=== PATIENT | male | born 1960 | race Two or more races ===

== ENCOUNTER 2016-11-23 10:58 | Outpatient (CLI) | payer MEDICARE, OTHER ==
[2016-11-23] MEDS ORDERED: INSU100V11 SQ (14:41)
[2016-11-23] MEDS ORDERED: INSU100V7 SQ (14:41)
[2016-11-23] MEDS ORDERED: ATOR10TA PO (14:41)
[2016-11-23] MEDS ORDERED: FENO160T PO (14:41)
[2016-11-23] MEDS ORDERED: SITA50TA PO (14:41)
[2016-11-23] MEDS ORDERED: FOLI0.8T23 PO (14:41)
[2016-11-23] MEDS ORDERED: LISI2.5T2 PO (14:41)
== END 2016-11-23 23:59 | disposition home or self-care (01) ==
LOC: WOU 10:58
PROVIDERS: ATTEND Podiatrist Foot & Ankle Surgery
DX: L03.115 Cellulitis of right lower limb (principal); Z89.511 Acquired absence of right leg below knee; R60.0 Localized edema; R50.9 Fever, unspecified; Z87.891 Personal history of nicotine dependence; E11.65 Type 2 diabetes mellitus with hyperglycemia; E11.40 Type 2 diabetes mellitus with diabetic neuropathy, unspecified; Z79.4 Long term (current) use of insulin; Z79.84 Long term (current) use of oral hypoglycemic drugs; E78.00 Pure hypercholesterolemia, unspecified
CPT/HCPCS: G0463

== ENCOUNTER 2016-11-23 12:44 | Inpatient (IN) | payer MEDICARE, OTHER ==
[~2016-11-23] VITALS: Ht 177.8 cm; Wt 87.1 kg
[2016-11-23 13:00] VITALS: BP 146/75
[2016-11-23] MEDS ORDERED: VANCOMYCIN 1 GM in IV D5W 250 ML IV ONE (14:00)
[2016-11-23] MEDS ORDERED: PIPERACILLIN /TAZOBACTAM 3.375 G in IV D5W 50 ML IV ONE (14:00)
[2016-11-23] MEDS ORDERED: DEXTROSE 50%-WATER 50 ML DISP.SYRIN IV PRN (14:00)
[2016-11-23 14:14] LABS: BASOPHILS # (AUTO) 0.1 /CMM (0.0-0.2); DIFF TOTAL % 100 %; EOSINOPHILS # (AUTO) 0.3 /CMM (0.0-0.7); EOSINOPHILS % (AUTO) 2.5 % (0.0-6.0); HEMATOCRIT 37 % (39-51); HEMOGLOBIN 12.1 g/dL (13.5-17.5); LYMPHOCYTES # (AUTO) 1.8 /CMM (0.8-4.8); MEAN CORPUSCULAR HEMOGLOBIN 28 PG (26.0-33.0); MEAN CORPUSCULAR HGB CONC 33 g/dl (31.0-36.0); MEAN CORPUSCULAR VOLUME 84 fL (80-96); MONOCYTES # (AUTO) 1.3 /CMM (0.1-1.30); MONOCYTES % (AUTO) 9.5 % (2.0-12.0); NEUTROPHILS # (AUTO) 10.2 /CMM (1.8-8.9); PLATELET COUNT (AUTO) 302 /CMM (150-450); RED BLOOD CELL COUNT(AUTO) 4.35 MIL/uL (4.5-6.0); WHITE BLOOD COUNT (AUTO) 13.7 K/uL (4.3-11.0)
[2016-11-23 14:24] LABS: CALCIUM, SERUM 9.2 mg/dL (8.5-10.1); CREATININE 2.7 mg/dL (0.6-1.3); POTASSIUM 4.4 mmol/L (3.5-5.1)
[2016-11-23] MEDS ORDERED: ATOR10TA PO (14:41)
[2016-11-23] MEDS ORDERED: SITA50TA PO (14:41)
[2016-11-23] MEDS ORDERED: FENO160T PO (14:41)
[2016-11-23] MEDS ORDERED: FOLI0.8T23 PO (14:41)
[2016-11-23] MEDS ORDERED: INSU100V11 SQ (14:41)
[2016-11-23] MEDS ORDERED: LISI2.5T2 PO (14:41)
[2016-11-23] MEDS ORDERED: INSU100V7 SQ (14:41)
[2016-11-23] MEDS ORDERED: SECONDARY IV SET 1 EA INFUS.SET MC ONE ×2 (14:56→15:46)
[2016-11-23] MEDS ORDERED: IV NS 0.9% 250 ML IV ONE (14:56)
[2016-11-23] MEDS ORDERED: IV SET PRIMARY PUMP SET 1 EA INFUS.SET MC ONE (14:56)
[2016-11-23] MEDS ORDERED: IV NS 0.9% 500 ML IV ONE (15:00)
[2016-11-23 16:00] VITALS: BP_SYST 145; BP_SYST 79; BP_DIAS 79
[2016-11-23 16:06] LABS: ERYTHROCYTE SEDIMENTATION RATE 69 MM/HR (0-20)
[2016-11-23] MEDS: BLOOD SUGAR DIAGNOSTIC 1 EACH STRIP VI SCH ×2 (17:14→21:59)
[2016-11-23] MEDS: INSULIN REGULAR, HUMAN 100 UNIT/ML 3 ML VIAL SQ PRN (17:18)
[2016-11-23] MEDS: HYDROCODONE/APAP 5/325MG 1 EACH TABLET PO PRN ×2 (17:21→21:31)
[2016-11-23] MEDS ORDERED: BLOOD SUGAR DIAGNOSTIC 1 EACH STRIP IN SCH (17:30)
[2016-11-23] MEDS ORDERED: FEE PK DOSING 1 MIN EA MC ONE (17:35)
[2016-11-23 20:00] VITALS: BP 150/87
[2016-11-23] MEDS ORDERED: INSULIN DETEMIR 100 UNIT/ML CARTRIDGE SQ SCH (22:00)
[2016-11-23] MEDS: *INSULIN REGULAR(HUMULIN R)HUM 100 UNIT/ML VIAL SQ PRN (22:02)
[2016-11-23] MEDS: PIPERACILLIN /TAZOBACTAM 2.25 G in IV D5W 50 ML IV SCH (23:35)
[2016-11-24] MEDS: PIPERACILLIN /TAZOBACTAM 2.25 G in IV D5W 50 ML IV SCH ×3 (05:01→17:16)
[2016-11-24] MEDS: HYDROCODONE/APAP 5/325MG 1 EACH TABLET PO PRN ×4 (05:09→22:44)
[2016-11-24] MEDS: BLOOD SUGAR DIAGNOSTIC 1 EACH STRIP VI SCH ×4 (05:53→21:15)
[2016-11-24] MEDS: *INSULIN REGULAR(HUMULIN R)HUM 100 UNIT/ML VIAL SQ PRN ×2 (06:41→21:18)
[2016-11-24 08:00] VITALS: BP 158/91
[2016-11-24] MEDS ORDERED: INSULIN GLARGINE, 100 UNIT/ML CARTRIDGE SQ SCH (09:00)
[2016-11-24] MEDS: FENOFIBRATE NANOCRYS (145 MG) 145 MG TABLET PO SCH (09:04)
[2016-11-24] MEDS: VIT B CMPLX 3/FA/VIT C/BIOTIN 1 TAB TABLET PO SCH (09:05)
[2016-11-24] MEDS: SITAGLIPTIN PHOSPHATE 50 MG TABLET PO SCH (09:05)
[2016-11-24] MEDS: ATORVASTATIN 10 MG TABLET PO SCH (09:05)
[2016-11-24] MEDS: LISINOPRIL (5MG) 5 MG TABLET PO SCH (09:08)
[2016-11-24] MEDS: INSULIN DETEMIR 100 UNIT/ML CARTRIDGE SQ SCH (09:13)
[2016-11-24] MEDS: INSULIN REGULAR, HUMAN 100 UNIT/ML 3 ML VIAL SQ PRN ×2 (11:33→16:40)
[2016-11-24 14:52] LABS: CALCIUM, SERUM 9.2 mg/dL (8.5-10.1); CREATININE 2.6 mg/dL (0.6-1.3)
[2016-11-24] MEDS: VANCOMYCIN 1 GM in IV D5W 250 ML IV SCH (15:44)
[2016-11-24 16:00] VITALS: BP 152/82
[2016-11-24 16:20] VITALS: BP 152/82
[2016-11-24] MEDS: LACTOBACILLUS RHAMNOSUS GG 1 EACH CAP.SPRINK PO SCH (16:39)
[2016-11-24 20:00] VITALS: BP 158/89
[2016-11-25] MEDS: PIPERACILLIN /TAZOBACTAM 2.25 G in IV D5W 50 ML IV SCH ×3 (00:50→11:44)
[2016-11-25] MEDS: INSULIN REGULAR, HUMAN 100 UNIT/ML 3 ML VIAL SQ PRN ×4 (05:34→21:50)
[2016-11-25] MEDS: BLOOD SUGAR DIAGNOSTIC 1 EACH STRIP VI SCH ×4 (05:35→21:41)
[2016-11-25 07:16] LABS: BASOPHILS # (AUTO) 0.1 /CMM (0.0-0.2); DIFF TOTAL % 100 %; EOSINOPHILS # (AUTO) 0.5 /CMM (0.0-0.7); EOSINOPHILS % (AUTO) 4.8 % (0.0-6.0); HEMATOCRIT 38 % (39-51); HEMOGLOBIN 12.3 g/dL (13.5-17.5); LYMPHOCYTES # (AUTO) 1.5 /CMM (0.8-4.8); LYMPHOCYTES % (AUTO) 15.4 % (20.0-44.0); MEAN CORPUSCULAR HEMOGLOBIN 28 PG (26.0-33.0); MEAN CORPUSCULAR HGB CONC 33 g/dl (31.0-36.0); MEAN CORPUSCULAR VOLUME 84 fL (80-96); MONOCYTES # (AUTO) 0.9 /CMM (0.1-1.30); MONOCYTES % (AUTO) 9.2 % (2.0-12.0); NEUTROPHILS % (AUTO) 69.6 % (43.0-81.0); PLATELET COUNT (AUTO) 322 /CMM (150-450); RED BLOOD CELL COUNT(AUTO) 4.45 MIL/uL (4.5-6.0)
[2016-11-25 07:41] LABS: CALCIUM, SERUM 9.4 mg/dL (8.5-10.1); CREATININE 2.3 mg/dL (0.6-1.3); POTASSIUM 4.1 mmol/L (3.5-5.1)
[2016-11-25 08:00] VITALS: BP_SYST 107; BP_SYST 157; BP_DIAS 73; BP_DIAS 87
[2016-11-25] MEDS: VIT B CMPLX 3/FA/VIT C/BIOTIN 1 TAB TABLET PO SCH (08:37)
[2016-11-25] MEDS: SITAGLIPTIN PHOSPHATE 50 MG TABLET PO SCH (08:37)
[2016-11-25] MEDS: ATORVASTATIN 10 MG TABLET PO SCH (08:37)
[2016-11-25] MEDS: FENOFIBRATE NANOCRYS (145 MG) 145 MG TABLET PO SCH (08:37)
[2016-11-25] MEDS: LACTOBACILLUS RHAMNOSUS GG 1 EACH CAP.SPRINK PO SCH ×2 (08:37→16:56)
[2016-11-25] MEDS: LISINOPRIL (5MG) 5 MG TABLET PO SCH (08:38)
[2016-11-25] MEDS: INSULIN DETEMIR 100 UNIT/ML CARTRIDGE SQ SCH (08:46)
[2016-11-25] MEDS: HYDROCODONE/APAP 5/325MG 1 EACH TABLET PO PRN ×2 (09:51→16:56)
[2016-11-25] MEDS ORDERED: IV NS 0.9% 500 ML IV ONE (11:00)
[2016-11-25 12:00] VITALS: BP 98/56
[2016-11-25 16:00] VITALS: BP_SYST 100; BP_SYST 148; BP_DIAS 62; BP_DIAS 85
[2016-11-25] MEDS: VANCOMYCIN 1 GM in IV D5W 250 ML IV SCH (16:53)
[2016-11-25] MEDS: CEFTRIAXONE 1 G in IV D5W 50 ML IV SCH (19:09)
[2016-11-25 20:00] VITALS: BP 142/79
[2016-11-26] MEDS: BLOOD SUGAR DIAGNOSTIC 1 EACH STRIP VI SCH ×4 (07:30→22:45)
[2016-11-26 08:00] VITALS: BP 159/66
[2016-11-26] MEDS: ATORVASTATIN 10 MG TABLET PO SCH (08:16)
[2016-11-26] MEDS: FENOFIBRATE NANOCRYS (145 MG) 145 MG TABLET PO SCH (08:16)
[2016-11-26] MEDS: LACTOBACILLUS RHAMNOSUS GG 1 EACH CAP.SPRINK PO SCH ×2 (08:17→16:15)
[2016-11-26] MEDS: SITAGLIPTIN PHOSPHATE 50 MG TABLET PO SCH (08:17)
[2016-11-26] MEDS: VIT B CMPLX 3/FA/VIT C/BIOTIN 1 TAB TABLET PO SCH (08:17)
[2016-11-26] MEDS: LISINOPRIL (5MG) 5 MG TABLET PO SCH (08:19)
[2016-11-26] MEDS: HYDROCODONE/APAP 5/325MG 1 EACH TABLET PO PRN ×3 (08:20→21:09)
[2016-11-26] MEDS: INSULIN DETEMIR 100 UNIT/ML CARTRIDGE SQ SCH (08:27)
[2016-11-26] MEDS: INSULIN REGULAR, HUMAN 100 UNIT/ML 3 ML VIAL SQ PRN (12:23)
[2016-11-26] MEDS ORDERED: IV NS 0.9% 250 ML IV ONE (15:10)
[2016-11-26] MEDS ORDERED: SET RED CAP 1 EA INFUS.SET MC ONE (15:10)
[2016-11-26] MEDS ORDERED: IV SET PRIMARY PUMP SET 1 EA INFUS.SET MC ONE (15:10)
[2016-11-26] MEDS ORDERED: SECONDARY IV SET 1 EA INFUS.SET MC ONE ×2 (15:10→17:21)
[2016-11-26 15:36] LABS: BASOPHILS # (AUTO) 0.1 /CMM (0.0-0.2); BASOPHILS % (AUTO) 1.4 % (0.0-2.0); DIFF TOTAL % 100 %; EOSINOPHILS # (AUTO) 0.5 /CMM (0.0-0.7); EOSINOPHILS % (AUTO) 5.2 % (0.0-6.0); HEMATOCRIT 37 % (39-51); HEMOGLOBIN 12.1 g/dL (13.5-17.5); LYMPHOCYTES # (AUTO) 1.3 /CMM (0.8-4.8); LYMPHOCYTES % (AUTO) 15.3 % (20.0-44.0); MEAN CORPUSCULAR HEMOGLOBIN 28 PG (26.0-33.0); MEAN CORPUSCULAR HGB CONC 33 g/dl (31.0-36.0); MEAN CORPUSCULAR VOLUME 85 fL (80-96); MONOCYTES # (AUTO) 0.7 /CMM (0.1-1.30); MONOCYTES % (AUTO) 7.8 % (2.0-12.0); NEUTROPHILS # (AUTO) 6.2 /CMM (1.8-8.9); NEUTROPHILS % (AUTO) 70.3 % (43.0-81.0); PLATELET COUNT (AUTO) 323 /CMM (150-450); RED BLOOD CELL COUNT(AUTO) 4.36 MIL/uL (4.5-6.0); WHITE BLOOD COUNT (AUTO) 8.8 K/uL (4.3-11.0)
[2016-11-26 15:46] LABS: CALCIUM, SERUM 8.7 mg/dL (8.5-10.1); CREATININE 2.5 mg/dL (0.6-1.3); POTASSIUM 4.4 mmol/L (3.5-5.1)
[2016-11-26 16:00] VITALS: BP 158/96
[2016-11-26] MEDS: VANCOMYCIN 1 GM in IV D5W 250 ML IV SCH (16:11)
[2016-11-26] MEDS: INSULIN ASPART NOVOLOG 100 UNIT/ML CARTRIDGE SQ SCH (16:24)
[2016-11-26] MEDS: *INSULIN REGULAR(HUMULIN R)HUM 100 UNIT/ML VIAL SQ PRN ×2 (17:52→22:19)
[2016-11-26] MEDS: CEFTRIAXONE 1 G in IV D5W 50 ML IV SCH (18:45)
[2016-11-26 20:00] VITALS: BP 134/97
[2016-11-27] MEDS: BLOOD SUGAR DIAGNOSTIC 1 EACH STRIP VI SCH ×4 (06:42→21:52)
[2016-11-27 07:35] LABS: BASOPHILS # (AUTO) 0.1 /CMM (0.0-0.2); DIFF TOTAL % 100 %; EOSINOPHILS # (AUTO) 0.4 /CMM (0.0-0.7); EOSINOPHILS % (AUTO) 5.1 % (0.0-6.0); HEMATOCRIT 38 % (39-51); HEMOGLOBIN 12.6 g/dL (13.5-17.5); LYMPHOCYTES # (AUTO) 1.9 /CMM (0.8-4.8); LYMPHOCYTES % (AUTO) 22.2 % (20.0-44.0); MEAN CORPUSCULAR HEMOGLOBIN 28 PG (26.0-33.0); MEAN CORPUSCULAR HGB CONC 33 g/dl (31.0-36.0); MEAN CORPUSCULAR VOLUME 85 fL (80-96); MONOCYTES # (AUTO) 0.8 /CMM (0.1-1.30); MONOCYTES % (AUTO) 8.8 % (2.0-12.0); NEUTROPHILS # (AUTO) 5.5 /CMM (1.8-8.9); NEUTROPHILS % (AUTO) 62.9 % (43.0-81.0); PLATELET COUNT (AUTO) 350 /CMM (150-450); RED BLOOD CELL COUNT(AUTO) 4.54 MIL/uL (4.5-6.0); WHITE BLOOD COUNT (AUTO) 8.7 K/uL (4.3-11.0)
[2016-11-27 07:46] LABS: CALCIUM, SERUM 9.3 mg/dL (8.5-10.1); CREATININE 2.2 mg/dL (0.6-1.3); POTASSIUM 4.3 mmol/L (3.5-5.1)
[2016-11-27] MEDS: HYDROCODONE/APAP 5/325MG 1 EACH TABLET PO PRN ×3 (07:50→17:34)
[2016-11-27 07:54] VITALS: BP 126/77
[2016-11-27] MEDS: INSULIN ASPART NOVOLOG 100 UNIT/ML CARTRIDGE SQ SCH ×3 (07:54→17:31)
[2016-11-27] MEDS ORDERED: INSULIN ASPART NOVOLOG 100 UNIT/ML CARTRIDGE SQ SCH (08:00)
[2016-11-27] MEDS: FENOFIBRATE NANOCRYS (145 MG) 145 MG TABLET PO SCH (08:03)
[2016-11-27] MEDS: LACTOBACILLUS RHAMNOSUS GG 1 EACH CAP.SPRINK PO SCH ×2 (08:03→17:05)
[2016-11-27] MEDS: VIT B CMPLX 3/FA/VIT C/BIOTIN 1 TAB TABLET PO SCH (08:03)
[2016-11-27] MEDS: SITAGLIPTIN PHOSPHATE 50 MG TABLET PO SCH (08:03)
[2016-11-27] MEDS: ATORVASTATIN 10 MG TABLET PO SCH (08:04)
[2016-11-27] MEDS: LISINOPRIL (5MG) 5 MG TABLET PO SCH (08:06)
[2016-11-27] MEDS: VANCOMYCIN 1 GM in IV D5W 250 ML IV SCH (15:20)
[2016-11-27 16:15] VITALS: BP 133/70
[2016-11-27] MEDS: CEFTRIAXONE 1 G in IV D5W 50 ML IV SCH (18:35)
[2016-11-27 19:00] VITALS: BP 122/73
[2016-11-27] MEDS: *INSULIN REGULAR(HUMULIN R)HUM 100 UNIT/ML VIAL SQ PRN (21:53)
[2016-11-28] MEDS: BLOOD SUGAR DIAGNOSTIC 1 EACH STRIP VI SCH ×4 (07:34→22:07)
[2016-11-28] MEDS: INSULIN ASPART NOVOLOG 100 UNIT/ML CARTRIDGE SQ SCH ×3 (07:36→17:50)
[2016-11-28] MEDS: INSULIN REGULAR, HUMAN 100 UNIT/ML 3 ML VIAL SQ PRN ×3 (07:36→17:51)
[2016-11-28 07:48] LABS: CALCIUM, SERUM 9.1 mg/dL (8.5-10.1); CREATININE 2.4 mg/dL (0.6-1.3); POTASSIUM 4.5 mmol/L (3.5-5.1)
[2016-11-28 08:00] VITALS: BP_SYST 130; BP_SYST 131; BP_DIAS 73
[2016-11-28] MEDS: INSULIN DETEMIR 100 UNIT/ML CARTRIDGE SQ SCH (09:22)
[2016-11-28] MEDS: FENOFIBRATE NANOCRYS (145 MG) 145 MG TABLET PO SCH (09:23)
[2016-11-28] MEDS: LACTOBACILLUS RHAMNOSUS GG 1 EACH CAP.SPRINK PO SCH ×2 (09:23→17:40)
[2016-11-28] MEDS: ATORVASTATIN 10 MG TABLET PO SCH (09:23)
[2016-11-28] MEDS: VIT B CMPLX 3/FA/VIT C/BIOTIN 1 TAB TABLET PO SCH (09:23)
[2016-11-28] MEDS: LISINOPRIL (5MG) 5 MG TABLET PO SCH (09:24)
[2016-11-28] MEDS: SITAGLIPTIN PHOSPHATE 50 MG TABLET PO SCH (09:24)
[2016-11-28] MEDS: HYDROCODONE/APAP 5/325MG 1 EACH TABLET PO PRN ×2 (10:05→20:18)
[2016-11-28 15:56] VITALS: BP 136/74
[2016-11-28 16:00] VITALS: BP 136/74
[2016-11-28] MEDS: VANCOMYCIN 1 GM in IV D5W 250 ML IV SCH (16:26)
[2016-11-28] MEDS ORDERED: LIDOCAINE 1%-EPI 1:100,000 20 ML VIAL TP ONE (17:30)
[2016-11-28] MEDS: CEFTRIAXONE 1 G in IV D5W 50 ML IV SCH (17:40)
[2016-11-28 18:00] VITALS: BP 136/74
[2016-11-28 20:00] VITALS: BP 134/62
[2016-11-28] MEDS: *INSULIN REGULAR(HUMULIN R)HUM 100 UNIT/ML VIAL SQ PRN (22:12)
[2016-11-29] MEDS: HYDROCODONE/APAP 5/325MG 1 EACH TABLET PO PRN ×2 (01:18→09:01)
[2016-11-29] MEDS: INSULIN REGULAR, HUMAN 100 UNIT/ML 3 ML VIAL SQ PRN ×2 (06:28→12:14)
[2016-11-29] MEDS: INSULIN ASPART NOVOLOG 100 UNIT/ML CARTRIDGE SQ SCH ×2 (07:04→12:13)
[2016-11-29 07:21] LABS: CREATININE 2.4 mg/dL (0.6-1.3); POTASSIUM 4.6 mmol/L (3.5-5.1)
[2016-11-29] MEDS: BLOOD SUGAR DIAGNOSTIC 1 EACH STRIP VI SCH ×2 (07:47→12:09)
[2016-11-29 08:00] VITALS: BP 126/73
[2016-11-29] MEDS: LACTOBACILLUS RHAMNOSUS GG 1 EACH CAP.SPRINK PO SCH (08:58)
[2016-11-29] MEDS: SITAGLIPTIN PHOSPHATE 50 MG TABLET PO SCH (08:58)
[2016-11-29] MEDS: ATORVASTATIN 10 MG TABLET PO SCH (08:58)
[2016-11-29 08:59] VITALS: BP 126/73
[2016-11-29] MEDS: VIT B CMPLX 3/FA/VIT C/BIOTIN 1 TAB TABLET PO SCH (08:59)
[2016-11-29] MEDS: FENOFIBRATE NANOCRYS (145 MG) 145 MG TABLET PO SCH (08:59)
[2016-11-29] MEDS: LISINOPRIL (5MG) 5 MG TABLET PO SCH (08:59)
[2016-11-29] MEDS: INSULIN DETEMIR 100 UNIT/ML CARTRIDGE SQ SCH (09:14)
[2016-11-29] MEDS ORDERED: DAKINS QUARTER STRENGTH (0.125%) 480 ML BOTTLE TOP SCH (13:30)
== END 2016-11-29 14:15 | disposition home health service (06) | DRG 602 ==
LOC: WOUND3 12:44 → MED 11-24 21:42 → WOUND3 11-27 09:59
PROVIDERS: ADMIT Podiatrist Foot & Ankle Surgery; ATTEND Family Medicine
PROC: 0Y9H0ZZ Drainage of Right Lower Leg, Open Approach (ICD-10-PCS; principal; 2016-11-28)
DX: L03.115 Cellulitis of right lower limb (principal); N17.0 Acute kidney failure with tubular necrosis; L02.415 Cutaneous abscess of right lower limb; I12.9 Hypertensive chronic kidney disease with stage 1 through stage 4 chronic kidney disease, or unspecified chronic kidney disease; E11.22 Type 2 diabetes mellitus with diabetic chronic kidney disease; E11.40 Type 2 diabetes mellitus with diabetic neuropathy, unspecified; N18.9 Chronic kidney disease, unspecified; D63.8 Anemia in other chronic diseases classified elsewhere; E11.42 Type 2 diabetes mellitus with diabetic polyneuropathy; E66.9 Obesity, unspecified; E78.5 Hyperlipidemia, unspecified; Z83.3 Family history of diabetes mellitus; Z87.891 Personal history of nicotine dependence; Z89.511 Acquired absence of right leg below knee; D72.829 Elevated white blood cell count, unspecified; Z68.27 Body mass index [BMI] 27.0-27.9, adult; E11.65 Type 2 diabetes mellitus with hyperglycemia; E83.9 Disorder of mineral metabolism, unspecified
CPT/HCPCS: 36415; 71010-TC; 73560-TC; 73721-TC; 80048-TC; 80202-TC; 82962-TC; 83735-TC; 84100-TC; 85025-TC; 85652-TC; 87070-TC; 87081-TC; 94799-TC; A6402; A6403; J0696; J1815; J2543; J3370; J3490; J7040; J7050; J7060

== ENCOUNTER 2016-12-10 13:00 | Outpatient (CLI) | payer MEDICARE, OTHER ==
[~2016-12-10 13:00] MED LIST: ATOR10TA PO; FENO160T PO; FOLI0.8T23 PO; INSU100V11 SQ; INSU100V7 SQ; LISI2.5T2 PO; SITA50TA PO
== END 2016-12-10 23:59 | disposition home health service (06) ==
LOC: WOU 13:00
PROVIDERS: ATTEND Surgery
DX: T87.43 Infection of amputation stump, right lower extremity (principal); L03.115 Cellulitis of right lower limb; E78.00 Pure hypercholesterolemia, unspecified; Z68.30 Body mass index [BMI] 30.0-30.9, adult; E66.9 Obesity, unspecified; Z89.511 Acquired absence of right leg below knee; Z87.891 Personal history of nicotine dependence; E11.40 Type 2 diabetes mellitus with diabetic neuropathy, unspecified; Z79.4 Long term (current) use of insulin; Z79.899 Other long term (current) drug therapy
CPT/HCPCS: 11043; A6402

== ENCOUNTER 2016-12-17 12:31 | Outpatient (CLI) | payer MEDICARE, OTHER | END 2016-12-17 23:59 | disposition home or self-care (01) | LOC: WOU 12:31 | PROVIDERS: ATTEND Surgery | DX: T87.43 Infection of amputation stump, right lower extremity (principal); L03.115 Cellulitis of right lower limb; E78.00 Pure hypercholesterolemia, unspecified; Z68.30 Body mass index [BMI] 30.0-30.9, adult; E66.9 Obesity, unspecified; Z89.511 Acquired absence of right leg below knee; Z87.891 Personal history of nicotine dependence; E11.40 Type 2 diabetes mellitus with diabetic neuropathy, unspecified; Z79.4 Long term (current) use of insulin; Z79.899 Other long term (current) drug therapy | CPT/HCPCS: 11043; A6402 ==

== ENCOUNTER 2016-12-31 13:15 | Outpatient (CLI) | payer MEDICARE, OTHER | END 2016-12-31 23:59 | disposition home health service (06) | LOC: WOU 13:15 | PROVIDERS: ATTEND Surgery | DX: Z48.817 Encounter for surgical aftercare following surgery on the skin and subcutaneous tissue (principal); L03.115 Cellulitis of right lower limb; R60.0 Localized edema; Z89.511 Acquired absence of right leg below knee; E11.21 Type 2 diabetes mellitus with diabetic nephropathy; E11.40 Type 2 diabetes mellitus with diabetic neuropathy, unspecified; Z89.412 Acquired absence of left great toe; Z87.891 Personal history of nicotine dependence; E78.00 Pure hypercholesterolemia, unspecified; Z68.30 Body mass index [BMI] 30.0-30.9, adult; E66.9 Obesity, unspecified; Z79.4 Long term (current) use of insulin; Z79.84 Long term (current) use of oral hypoglycemic drugs; Z79.899 Other long term (current) drug therapy | CPT/HCPCS: 11042; A6402 ==

== ENCOUNTER 2017-02-25 13:30 | Outpatient (CLI) | payer MEDICARE, OTHER | END 2017-02-25 23:59 | disposition home or self-care (01) | LOC: WOU 13:30 | PROVIDERS: ATTEND Surgery | DX: L89.892 Pressure ulcer of other site, stage 2 (principal); Z89.511 Acquired absence of right leg below knee; E11.22 Type 2 diabetes mellitus with diabetic chronic kidney disease; I12.9 Hypertensive chronic kidney disease with stage 1 through stage 4 chronic kidney disease, or unspecified chronic kidney disease; N18.9 Chronic kidney disease, unspecified; Z87.891 Personal history of nicotine dependence; T87.89 Other complications of amputation stump; Z68.30 Body mass index [BMI] 30.0-30.9, adult; E78.00 Pure hypercholesterolemia, unspecified; E11.9 Type 2 diabetes mellitus without complications; Z79.4 Long term (current) use of insulin; Z79.899 Other long term (current) drug therapy | CPT/HCPCS: 11042; A6402 ==

== ENCOUNTER 2018-01-27 13:41 | Outpatient (CLI) | payer MEDICARE, OTHER | END 2018-01-27 23:59 | disposition home or self-care (01) | LOC: WOU 13:41 | PROVIDERS: ATTEND Surgery | DX: L89.893 Pressure ulcer of other site, stage 3 (principal); T87.89 Other complications of amputation stump; Z89.511 Acquired absence of right leg below knee; Z89.412 Acquired absence of left great toe; Z87.891 Personal history of nicotine dependence; E11.40 Type 2 diabetes mellitus with diabetic neuropathy, unspecified; E78.00 Pure hypercholesterolemia, unspecified; Z68.29 Body mass index [BMI] 29.0-29.9, adult | CPT/HCPCS: 11042; A6209; A6402 ==

== ENCOUNTER 2023-02-08 08:19 | Outpatient (CLI) | payer MEDICARE, OTHER | END 2023-02-08 23:59 | disposition home or self-care (01) | LOC: WOU 08:19 | PROVIDERS: ATTEND Podiatrist Foot & Ankle Surgery | DX: E11.621 Type 2 diabetes mellitus with foot ulcer (principal); L97.522 Non-pressure chronic ulcer of other part of left foot with fat layer exposed; E11.42 Type 2 diabetes mellitus with diabetic polyneuropathy; Z89.511 Acquired absence of right leg below knee; L84 Corns and callosities | CPT/HCPCS: 87070; 87075; G0463; A6197 ==

== ENCOUNTER 2023-02-15 08:20 | Outpatient (CLI) | payer MEDICARE, OTHER | END 2023-02-15 23:59 | disposition home or self-care (01) | LOC: WOU 08:20 | PROVIDERS: ATTEND Podiatrist Foot & Ankle Surgery | DX: E11.621 Type 2 diabetes mellitus with foot ulcer (principal); L97.522 Non-pressure chronic ulcer of other part of left foot with fat layer exposed; E11.42 Type 2 diabetes mellitus with diabetic polyneuropathy; Z89.511 Acquired absence of right leg below knee | CPT/HCPCS: 11042; A6197 ==

== ENCOUNTER 2023-02-22 10:22 | Outpatient (CLI) | payer MEDICARE, OTHER | END 2023-02-22 23:59 | disposition home or self-care (01) | LOC: WOU 10:22 | PROVIDERS: ATTEND Podiatrist Foot & Ankle Surgery | DX: E11.621 Type 2 diabetes mellitus with foot ulcer (principal); L97.528 Non-pressure chronic ulcer of other part of left foot with other specified severity; E11.42 Type 2 diabetes mellitus with diabetic polyneuropathy; Z89.511 Acquired absence of right leg below knee | CPT/HCPCS: 11042 ==

== ENCOUNTER 2023-05-14 10:30 | Outpatient (CLI) | payer MEDICARE, OTHER | END 2023-05-14 23:59 | disposition home or self-care (01) | LOC: WOU 10:30 | PROVIDERS: ATTEND Podiatrist Foot & Ankle Surgery | DX: E11.621 Type 2 diabetes mellitus with foot ulcer (principal); L97.522 Non-pressure chronic ulcer of other part of left foot with fat layer exposed; E11.42 Type 2 diabetes mellitus with diabetic polyneuropathy; Z89.511 Acquired absence of right leg below knee; Z79.84 Long term (current) use of oral hypoglycemic drugs; Z79.02 Long term (current) use of antithrombotics/antiplatelets; Z79.899 Other long term (current) drug therapy; E78.00 Pure hypercholesterolemia, unspecified | CPT/HCPCS: 15275; Q4133 ==

== ENCOUNTER 2025-06-29 09:49 | Outpatient (CLI) | payer MEDICARE, OTHER | END 2025-06-29 23:59 | disposition home health service (06) | LOC: WOU 09:49 | PROVIDERS: ATTEND Podiatrist Foot & Ankle Surgery | DX: E11.621 Type 2 diabetes mellitus with foot ulcer (principal); L97.525 Non-pressure chronic ulcer of other part of left foot with muscle involvement without evidence of necrosis; E11.42 Type 2 diabetes mellitus with diabetic polyneuropathy; E11.69 Type 2 diabetes mellitus with other specified complication; M86.672 Other chronic osteomyelitis, left ankle and foot; Z89.422 Acquired absence of other left toe(s); Z79.4 Long term (current) use of insulin; Z79.02 Long term (current) use of antithrombotics/antiplatelets | CPT/HCPCS: 11043 ==

== ENCOUNTER 2025-08-24 10:18 | Outpatient (CLI) | payer MEDICARE, OTHER ==
[2025-08-24] MEDS ORDERED: COLLAGENASE 5 GM TUBE UD TP ONE (10:48)
== END 2025-08-24 23:59 | disposition home health service (06) ==
LOC: WOU 10:18
PROVIDERS: ATTEND Podiatrist Foot & Ankle Surgery
DX: E11.621 Type 2 diabetes mellitus with foot ulcer (principal); L97.525 Non-pressure chronic ulcer of other part of left foot with muscle involvement without evidence of necrosis; E11.622 Type 2 diabetes mellitus with other skin ulcer; L97.322 Non-pressure chronic ulcer of left ankle with fat layer exposed; E11.42 Type 2 diabetes mellitus with diabetic polyneuropathy; E11.69 Type 2 diabetes mellitus with other specified complication; M86.672 Other chronic osteomyelitis, left ankle and foot; Z79.4 Long term (current) use of insulin; Z89.422 Acquired absence of other left toe(s); Z79.02 Long term (current) use of antithrombotics/antiplatelets
CPT/HCPCS: 11042; G0463